=== PATIENT | female | born 1985 | race Two or more races ===

== ENCOUNTER 2016-06-27 13:19 | Outpatient (CLI) | payer MEDICAID, OTHER ==
[~2016-06-27] VITALS: Ht 162.6 cm; Wt 78.3 kg
[2016-06-27 14:29] VITALS: BP 101/58
[2016-06-27] MEDS ORDERED: PREN1TAB60 PO (17:43)
== END 2016-06-27 17:55 | disposition home or self-care (01) ==
LOC: LDOP 13:19
PROVIDERS: ATTEND Student in an Organized Health Care Education/Training Program
DX: O26.893 Other specified pregnancy related conditions, third trimester (principal); O36.8130 Decreased fetal movements, third trimester, not applicable or unspecified; R10.9 Unspecified abdominal pain; Z3A.30 30 weeks gestation of pregnancy
CPT/HCPCS: 36415; 59025; 81003; 85460; 99211; G0463

== ENCOUNTER 2016-08-19 23:15 | Inpatient (IN) | payer MEDICAID, OTHER ==
[~2016-08-19] VITALS: Ht 162.6 cm; Wt 79.5 kg
[~2016-08-19 23:15] MED LIST: PREN1TAB60 PO
[2016-08-19] MEDS ORDERED: ONDANSETRON 2MG/ML, 2ML IVPush PRN (23:30)
[2016-08-19] MEDS ORDERED: CALCIUM CARBONATE 500 MG TAB.CHEW PO PRN (23:30)
[2016-08-19] MEDS ORDERED: FENTANYL PF 100 MCG/2ML IV PRN (23:30)
[2016-08-19] MEDS ORDERED: ALUMINUM/MAG/SIMETHICONE 30 ML UDC PO PRN (23:30)
[2016-08-19] MEDS ORDERED: TERBUTALINE 1 MG/ML, 1ML IVPush PRN ×2 (23:30)
[2016-08-19] MEDS ORDERED: SODIUM CITRATE/CITRIC ACID 30 ML UDC PO PRN (23:30)
[2016-08-19] MEDS ORDERED: OXYTOCIN 30U/ 0.9% NaCL 500ML 500 ML IV ONE (23:30)
[2016-08-19] MEDS ORDERED: OXYTOCIN 30U/ 0.9% NaCL 500ML 500 ML IV PRN (23:30)
[2016-08-19] MEDS ORDERED: NEWBORN KIT ONE (23:45)
[2016-08-19] MEDS: LACTATED RINGERS 1,000 ML IV SCH (23:55)
[2016-08-20 01:07] VITALS: BP 109/59
[2016-08-20] MEDS ORDERED: OXYTOCIN 30U/ 0.9% NaCL 500ML 500 ML IV PRN (02:38)
[2016-08-20] MEDS ORDERED: OXYTOCIN 30U/ 0.9% NaCL 500ML 500 ML ONE ×2 (03:00→12:33)
[2016-08-20] MEDS: D5%-LACTATED RINGERS 1,000 ML IV SCH ×3 (03:54→15:30)
[2016-08-20] MEDS: LACTATED RINGERS 1,000 ML IV SCH ×2 (04:02→15:30)
[2016-08-20] MEDS ORDERED: LIDOCAINE 1%, 20ML ONE (07:18)
[2016-08-20] MEDS ORDERED: MISOPROSTOL 200 MCG TABLET ONE (07:18)
[2016-08-20] MEDS ORDERED: FENTANYL PF 100 MCG/2ML ONE ×3 (08:50→10:56)
[2016-08-20] MEDS: FENTANYL PF 100 MCG/2ML IVPush PRN ×3 (08:55→11:07)
[2016-08-20] MEDS ORDERED: IBUPROFEN 600 MG TABLET ONE (12:27)
[2016-08-20] MEDS: OXYTOCIN 30U/ 0.9% NaCL 500ML 500 ML IV SCH ×2 (12:33→22:33)
[2016-08-20] MEDS: IBUPROFEN 600 MG TABLET PO PRN ×2 (12:40→19:48)
[2016-08-20] MEDS ORDERED: OXYTOCIN 10 UNITS/ML, 1ML IM PRN (13:00)
[2016-08-20] MEDS ORDERED: ONDANSETRON 2MG/ML, 2ML IV PRN (13:00)
[2016-08-20] MEDS ORDERED: HYDROcodone/APAP 5/325 TABLET PO PRN ×2 (13:00)
[2016-08-20] MEDS ORDERED: METHYLERGONOVINE 0.2 MG/ML IM PRN (13:00)
[2016-08-20] MEDS ORDERED: MISOPROSTOL 200 MCG TABLET PR PRN (13:00)
[2016-08-20 14:30] VITALS: BP 103/51
[2016-08-20] MEDS: DOCUSATE 100 MG CAPSULE PO PRN (19:48)
[2016-08-20 19:50] VITALS: BP 94/52
[2016-08-21 00:25] VITALS: BP 95/44
[2016-08-21 05:00] VITALS: BP 116/41
[2016-08-21] MEDS: IBUPROFEN 600 MG TABLET PO PRN ×2 (06:13→12:45)
[2016-08-21 08:12] VITALS: BP 105/71
[2016-08-21] MEDS: DOCUSATE 100 MG CAPSULE PO PRN (08:26)
[2016-08-21] MEDS: OXYTOCIN 30U/ 0.9% NaCL 500ML 500 ML IV SCH (08:33)
[2016-08-21] MEDS ORDERED: PRENATAL VIT/IRON/FA 1 EACH TABLET PO SCH (09:00)
[2016-08-21] MEDS ORDERED: IBUP-1222 PO (09:33)
[2016-08-21] MEDS ORDERED: DOCU-30 PO (09:35)
[2016-08-21] MEDS ORDERED: HYDR-3240 PO (09:35)
[2016-08-21] MEDS ORDERED: FERR325T20 PO (09:36)
== END 2016-08-21 13:42 | disposition home or self-care (01) | DRG 775 ==
LOC: LDOP 23:15 → LDIP 23:39 → 2NW 08-20 14:07
PROVIDERS: ADMIT Student in an Organized Health Care Education/Training Program; ATTEND Student in an Organized Health Care Education/Training Program
PROC: 10E0XZZ Delivery of Products of Conception, External Approach (ICD-10-PCS; principal; 2016-08-20)
DX: O42.92 Full-term premature rupture of membranes, unspecified as to length of time between rupture and onset of labor (principal); O69.81X0 Labor and delivery complicated by cord around neck, without compression, not applicable or unspecified; D64.9 Anemia, unspecified; O99.02 Anemia complicating childbirth; Z37.0 Single live birth; Z3A.38 38 weeks gestation of pregnancy; Z90.49 Acquired absence of other specified parts of digestive tract
CPT/HCPCS: 36415; 85025; 86850; 86870; 86900; 86902; 86922; 86923; J3010; J2590; J7120; J7121

== ENCOUNTER 2016-08-23 16:24 | Emergency (ER) | payer MEDICAID ==
[~2016-08-23] VITALS: Ht 162.6 cm; Wt 78.1 kg
[~2016-08-23 16:24] MED LIST changes: +DOCU-30 PO; +FERR325T20 PO; +HYDR-3240 PO; +IBUP-1222 PO
[2016-08-23] MEDS ORDERED: SODIUM CHLORIDE 0.9% 1,000ML IVBOLUS ONE (17:00)
[2016-08-23 18:20] LABS: BLOOD UREA NITROGEN 10 mg/dL (7-18)
[2016-08-23 19:34] VITALS: BP 122/67
== END 2016-08-23 19:47 | disposition home or self-care (01) ==
LOC: ED 19:40
DX: O72.1 Other immediate postpartum hemorrhage (principal); N93.9 Abnormal uterine and vaginal bleeding, unspecified
CPT/HCPCS: 36415; 76830; 80048; 82040; 85025; 99285